=== PATIENT | female | born 1990 | race African-American/Black ===

== ENCOUNTER 2024-03-23 08:54 | Emergency (ER) | payer SELFPAY ==
[2024-03-23] MEDS ORDERED: Ibuprofen 200 MG TAB ONE (09:22)
== END 2024-03-23 09:55 | disposition home or self-care (01) ==
LOC: CSHERS 08:54
DX: M25.512 Pain in left shoulder (principal); F17.210 Nicotine dependence, cigarettes, uncomplicated